=== PATIENT | male | born 2000 | race Caucasian/White ===

== ENCOUNTER 2023-04-20 19:10 | Outpatient (RCR) | payer OTHER ==
[~2023-04-20] VITALS: Ht 186 cm; Wt 90.9 kg
[2023-04-20 19:22] VITALS: BP 136/62
[2023-04-20] MEDS ORDERED: VANCOMYCIN INJECTION 1,000 MG in NS (IVPB) 250 ML 250 ML IV ONE (19:45)
[2023-04-21 06:51] VITALS: BP 114/51
[2023-04-21] MEDS ORDERED: VANCOMYCIN INJECTION 1,000 MG in NS (IVPB) 250 ML 250 ML IV ONE (07:00)
[2023-04-21 08:20] VITALS: BP 114/51
== END 2023-05-16 | disposition home or self-care (01) ==
LOC: 4THo 19:10
PROVIDERS: ATTEND Nurse Practitioner
DX: L03.039 Cellulitis of unspecified toe (principal)
CPT/HCPCS: 96365